=== PATIENT | female | born 1975 | race Two or more races ===

== ENCOUNTER 2025-06-17 19:32 | Emergency (ER) | payer MEDICAID, SELFPAY ==
[2025-06-17 19:34] VITALS: BP 108/73; PULSE 86; RESP 19; TEMP 36.4; O2SAT 100; BMI 33.3
[2025-06-17 19:38] VITALS: PULSE 80; O2SAT 98
--- NOTE | 2025-06-17 19:39 | EDNOTE_ITS ---
ED Syncope RME/HPI General Chief Complaint: Syncope / Near Syncope Stated Complaint: SYNCOPE/fall Time Seen by Provider: 06/17/25 20:00 Arrival date/time: 06/17/25 19:32 RME / HPI RME / HPI narrative: Dr. Milligan?[facility] Main ED Evaluation: 49yo female presenting for a brief syncopal episode characterized by lightheadedness/dizziness while in a seated position after having taken [place] earlier in the afternoon and Gabapentin shortly prior to syncope. Patient notes that she sustained brief LOC and sustained blunt trauma to the upper lip upon falling forward. Patient notes having chronic neck and back pain and chronic paresthesias of the BLE. Family members witnessed the fall, denied any seizure activity, but reports the patient did have urinary incontinence. PSH include cholecystectomy, lumbar stabilization procedure. Related Data Home Medications ?Medication ?Instructions ?Recorded ?Confirmed labetalol 200 mg tablet (Trandate) 200 mg PO BID #0 ta bs 04/10/15 02/19/19 Previous Rx's ?Medication ?Instructions ?Recorded docusate sodium 100 mg capsule 100 mg PO BID #50 caps 02/21/19 hydrocodone 5 mg-acetaminophen 325 1 tab PO Q6HR PRN M ODERATE PAIN 02/21/19 mg tablet 4-6 #25 tabs acetaminophen 300 mg-codeine 15 mg 1 tab PO Q8H PRN pa in #20 tabs 06/17/25 tablet bacitracin 500 unit/gram topical 1 applic topical TID #14 grams 06/17/25 ointment Allergies Allergy/AdvReac Type Severity Reaction Status Date / Time No Known Allergies Allergy Verified 02/20/19 13:59 Review of Systems Review of Systems Systems Reviewed: All systems reviewed, normal except as documented Past Medical History Past Medical History NEUROLOGIC: Negative Neurological Disorders or Seizures CARDIAC: Positive Cardiac Disorders and Hypertension; Negative Congestive Heart Failure RESPIRATORY: Negative Chronic Obstructive Pulmonary Disease (COPD) or Asthma GASTROINTESTINAL: Negative Gastrointestinal Disorders GENITOURINARY: Negative Genitourinary Disorders or Renal Disease MUSCULOSKELETAL: Negative Musculoskeletal Disorders ENDOCRINE: Negative Endocrine Disorders, Diabetes Mellitus Type 1 or Diabetes Mellitus Type 2 HEMATOLOGIC: Negative Blood Disorders or Sickle Cell Disease OTHER HISTORY: Negative Autoimmune Disease, Falls, Blood Transfusions, Blood Transfusion Reaction or Anesthesia Reactions Family History FAMILY HISTORY: Negative Family Cardiac Disorders Surgical History SURGICAL: Positive Section Social History SMOKING STATUS: Never smoker SUBSTANCE USE: does not use ED Exam Narrative Physical exam: GENERAL APPEARANCE: alert and oriented x 4, well-developed, well-nourished, appears to be upset emotionally, nontoxic, no acute distress VITALS: All vitals were reviewed and the pulse ox is 100% on room air, which is normal according to my interpretation. HEENT: Normocephalic, outer aspect of the upper lip, linear 2.5 cm full thick lac to the under surface, no malocclusion or dental injury; pupils equal, round, reactive to light; EOMI; mucous membranes pink, moist; oropharynx clear NECK: Supple, midline posterior tenderness throughout the cervical spine LUNGS: CTABL; no wheezes, no rales, no rhonchi HEART: Regular rate, regular rhythm; normal S1, S2; no murmurs ABDOMEN: non distended; normal BS; soft, no tenderness, no guarding, negative pelvic rock BACK: no CVA tenderness EXTREMITIES: mild tenderness and erythema to the inferior portion of the left patella with limited ROM at the knee, no ligamentous instability, distal function is intact, patient has difficulty extending the left knee; no edema NEUROLOGIC: awake; alert and oriented x4; GCS 15, has poor recollection of details of the event, cranial nerves II-XII grossly intact; no focal sensory or motor deficits, gait not observed PSYCHIATRIC: appropriate mood and affect SKIN: warm, dry, normal color; no rashes Course Quality Measures none Orders Category Date Time Status Motion Study Technician STAT Care 06/17/25 20:00 Active EKG (ED ONLY) *Do not use* NOW Care 06/17/25 20:00 Completed Orthostatic Vitals STAT Care 06/17/25 20:[address] cervical spine wo con Stat Exams 06/17/25 20:[address] head/brain wo con Stat Exams 06/17/25 20:04 Completed EKG (ED Only) Stat Exams 06/17/25 20:00 Draft XR knee limited LT 2V Stat Exams 06/17/25 20:05 Completed Urinalysis, C/S if Indicated Stat Lab 06/17/25 20:37 Completed Lidocaine 1% Vial 20 ml [Xylocaine 1% 20 ML] Med 06/17/25 22:06 Discontinued 10 ml INFL X1 ONE TET,DIP/PERT AC (Adult)-Tdap [Boostrix Adult (Tdap) Med 06/17/25 20:00 Discontinued Vacc] 0.5 ml IMI .ONCE ONE Vital Signs Vital signs: Vital Signs Temperature 97.6 F 06/17/25 19:34 Pulse Rate 86 06/17/25 19:34 Respiratory Rate 19 06/17/25 19:34 Blood Pressure 108/73 06/17/25 19:34 Pulse Oximetry (%) 100 06/17/25 19:34 Oxygen Delivery Method Room Air 06/17/25 19:34 PROCEDURES: Laceration Laceration 1: Site: lip (intra-oral, central upper lip) Size (cm): 2.5 Description: linear Depth: simple, single layer Local Anesthetic: lidocaine 1% Amount of anesthesia used (mL): 10 Pre-repair: irrigated extensively Skin layer closed with: vicryl Suture size (cm): 4-0 Number of sutures: 6 Technique: simple, interrupted Syncope MDM Narrative MDM Narrative:: Scribe Attestation: 06/17/25 - Leena, Erica Lewis am scribing for and in the presence of Dr. Milligan. 49yo female presenting for a brief syncopal episode characterized by lightheadedness/dizziness while in a seated position after having taken [place] earlier in the afternoon and Gabapentin shortly prior to syncope. Patient notes that she sustained brief LOC and sustained blunt trauma to the upper lip upon falling forward. Please see PE findings. Patient refused lab draw and thereby, no lab markers obtained. Routine left knee x-rays were obtained and was unremarkable for acute fracture. CT head and cervical spine were both unremarkable. Patient remained neurologically intact and hemodynamically stable throughout ED course. Will obtain orthostats at this time. Suspect brief syncopal episode likely medication-related and acknowledged poor PO intake. Will recommend increasing fluid hydration and staggering narcotic analgesics and gabapentin by 12 hours. Topical bacitracin will be applied for the oral laceration and precaution instructions issued. Patient data External records reviewed:: [facility] previous records (Per chart review, patient was admitted here on 02/19/19 for acute cholecystitis.) and EMS form Clinical information provided by:: patient and EMS Social determinants that could affect healthcare access:: none Patient has the following chronic illnesses:: HTN How is presenting disease/condition affected by chronic disease/condition?: uneffected by Evaluation data The following diagnostics were reviewed and interpreted by me:: lab results, radiology exam(s) and EKG tracing(s) Lab and/or radiology exams considered but not ordered:: none Interpretation Summary: EKG done at 2057, sinus rhythm, rate of 94, no acute pathological ST segment changes, no ectopy, normal intervals, normal axis, according to my interpretation. [facility] Report Signed Patient: JAKE HERNANDEZ. Record#: [id number] Birthdate: 1975 Age/Sex: 49 / F [facility] Dr: Ordering Physician: Matti Montes DO Date of Service: 06/17/25 Procedure(s): CT head/brain wo con Accession Number(s): [id number] cc: Matti Montes DO; Srinivas Cline MD~ Examination: CT brain head without contrast. 2-D sagittal coronal reconstructions Date and time of exam: June 17, 2025, 2041 hours INDICATIONS: Syncopal episode today, patient fell with injury to the head, head pain CTDI: vol (mGy): 49.1 DLP: (mGycm): 954 Technique: Multiple CT axial sections of the brain have been obtained, 5 mm slice thickness. Contrast has not been administered. 2-D sagittal, coronal reconstructions have been obtained Low dose protocols were performed. One or more of the following dose reduction techniques were used; automated exposure control, adjustment of the mA and/or KV according to patient size, use of iterative reconstruction technique. Findings: No significant ventricular enlargement. Intra-axial or extra-axial hemorrhage density is not seen. No mass effect or midline shift Basal cisterns are not remarkable. Fourth ventricle is midline. Cranial vault intact. Impression: Negative for acute hemorrhage, mass effect or midline shift Dictated By: Srinivas Cline MD Signed By: <Electronically signed by Srinivas Cline MD in OV> 06/17/252126 [facility] Report Signed Patient: JAKE HERNANDEZ Celsion. Record#: [id number] Birthdate: 1975 Age/Sex: 49 / F Location: [facility] Attending Dr: Ordering Physician: Matti Montes DO Date of Service: 06/17/25 Procedure(s): CT cervical spine wo con Accession Number(s): [id number] cc: Matti Montes DO; Srinivas Cline MD~ Examination: CT cervical spine without contrast 2-D sagittal reconstructions 2-D coronal reconstructions 3-D reconstructions. Exam date and time: June hours INDICATIONS: Syncopal episode today, patient fell with injury to the neck, neck pain CTDI:vol (mGy) 16.6 DLP: (mGycm) 320 Technique: Multiple 2 mm axial sections of the cervical spine have been obtained. The coronal and sagittal reconstructions have been obtained. 3-D reconstructions have been obtained. Low dose protocols were performed. One or more of the following dose reduction techniques were used; automated exposure control, adjustment of the mA and/or KV according to patient size, use of iterative reconstruction technique. Findings: Axial sections demonstrate intact base of the skull. C1 exhibit satisfactory relationship to the odontoid. No acute cervical vertebral body fracture seen. Alignment posterior spinous processes satisfactory. Impression: No acute cervical fracture. Dictated By: Srinivas Cline MD Signed By: <Electronically signed by Srinivas Cline MD in > 06/17/252126 [facility] Report Signed Patient: JAKE HERNANDEZ Record#: [id number] Birthdate: 1975 Age/Sex: 49 / F Location: [facility] Attending Dr: Ordering Physician: Matti Montes DO Date of Service: 06/17/25 Procedure(s): XR knee limited LT 1-2V Accession Number(s): [id number] cc: Matti Montes DO; Srinivas Cline MD~ EXAMINATION: Left knee 2 views TECHNIQUE: AP lateral left knee 2 views Date and time: June 17, 2025, 2129 hours INDICATIONS: Patient fell today with injury to the knee, knee pain. FINDINGS: No acute fracture No dislocation No foreign body IMPRESSION: No acute fracture Dictated By: Srinivas Cline MD Signed By: <Electronically signed by Srinivas Cline MD in OV> 06/17/25 2145 Medications / Prescriptions Medications or Prescriptions considered but not ordered:: none Medication administrations:: Medication Administration History Discontinued Medications Diphtheria/Tetanus/Acell Pertussis (Diphth,Pertuss(Acell),Tet Vac 0.5 Ml Syr- Adult) 0.5 ml IMi .ONCE ONE Stop: 06/17/25 20:01 Last Admin: 06/17/25 21:24 Dose: 0.5 ml Documented By: JOSE Lidocaine HCl (Lidocaine Hcl 1% 20 Ml Vial) 10 ml INFL X1 ONE Stop: 06/17/25 22:07 Last Admin: 06/17/25 23:01 Dose: 10 ml Documented By: BR see above Consultations Consultation(s) initiated? (list below): No Diagnosis Syncope Differential Diagnosis: vasovagal syncope, dehydration and other (fracture, dislocation, contusion, abrasion, ICH, medication side effect) Most likely diagnosis given after review of the tests above:: see clinical impression below Admission Indicated Admission indicated?: not indicated Admission Request Was there a request for admission?: No Disposition Plan Disposition Plan: Discharge Discharge Attestation Discharge Attestation: The patient and all family members were given an opportunity to ask questions and understood the discharge instructions. Discharge instructions specifically effects, indications for sooner follow up or return to the emergency department, and the expected course of current diagnosis. Patient condition: Stable Discharge Plan Plan Patient Disposition: HOME (Self Care) Discharge Disposition comment: stable Prescriptions/Referrals Prescriptions/Med Rec: New bacitracin 500 unit/gram ointment 1 applic topical TID Qty: 14 0RF acetaminophen-codeine 300-15 mg tablet 1 tab PO Q8H PRN (Reason: pain) Qty: 20 0RF No Action labetalol [Trandate] 200 MG tablet 200 mg PO BID Qty: 0 hydrocodone-acetaminophen 5-325 mg Tablet 1 tab PO Q6HR MDD 5 PRN (Reason: MODERATE PAIN 4-6) Qty: 25 0RF docusate sodium 100 mg Capsule 100 mg PO BID Qty: 50 0RF Referrals: Delonte Lyons PA-C [Primary Care Provider] - In 1 week Problem List Clinical Impression: Syncope and collapse, Medication reaction, Contusion of multiple sites, Laceration of lip Impression comment: Syncope/medication reaction/contusion of multiple sites/oral laceration Patient/Caregiver Discharge Instructions Discharge Activity: activity as tolerated Diet Instructions: Soft diet Education Materials: Causes of Syncope, ED PEACE Wrap, ED Laceration, Lip or Mouth Additional Instructions: Head of bed elevation. Ice compresses x 24 hours. Topical bacitracin twice daily. Stagger both gabapentin and narcotic analgesics by at least 10 to 12 hours. Increase fluid hydration. Print Language: Danish Stand Alone Forms: [facility] Award Info., Patient Portal Info Letter
[2025-06-17 19:47] VITALS: BP 119/83; PULSE 86; RESP 20; O2SAT 100
--- NOTE | 2025-06-17 20:00 | EKG_ITS ---
[facility] Test Date: 2025-06-17 Pat Name: JAKE HERNANDEZ Department: Room: - Gender: Female [employer]ander: : 1975 Requested By: Matti Vigil Order Number: [id number] Reading MD: Matti Vigil Measurements Intervals [place] Rate: 94 P: 19 WA: 142 QRS: 22 QRSD: 86 T: 13 QT: 357 QTc: 447 Interpretive Statements SINUS RHYTHM No previous ECG available for comparison /store/S0/[id number]/ecg/[id number].pdf
--- NOTE | 2025-06-17 20:04 | XR_ITS ---
Examination: CT brain head without contrast. 2-D sagittal coronal reconstructions Date and time of exam: June 17, 2025, 2041 hours INDICATIONS: Syncopal episode today, patient fell with injury to the head, head pain CTDI: vol (mGy): 49.1 DLP: (mGycm): 954 Technique: Multiple CT axial sections of the brain have been obtained, 5 mm slice thickness. Contrast has not been administered. 2-D sagittal, coronal reconstructions have been obtained Low dose protocols were performed. One or more of the following dose reduction techniques were used; automated exposure control, adjustment of the mA and/or KV according to patient size, use of iterative reconstruction technique. Findings: No significant ventricular enlargement. Intra-axial or extra-axial hemorrhage density is not seen. No mass effect or midline shift Basal cisterns are not remarkable. Fourth ventricle is midline. Cranial vault intact. Impression: Negative for acute hemorrhage, mass effect or midline shift
--- NOTE | 2025-06-17 20:05 | XR_ITS ---
EXAMINATION: Left knee 2 views TECHNIQUE: AP lateral left knee 2 views Date and time: June 17, 2025, 2129 hours INDICATIONS: Patient fell today with injury to the knee, knee pain. FINDINGS: No acute fracture No dislocation No foreign body IMPRESSION: No acute fracture
--- NOTE | 2025-06-17 20:06 | XR_ITS ---
Examination: CT cervical spine without contrast 2-D sagittal reconstructions 2-D coronal reconstructions 3-D reconstructions. Exam date and time: June, 2041 hours INDICATIONS: Syncopal episode today, patient fell with injury to the neck, neck pain CTDI:vol (mGy) 16.6 DLP: (mGycm) 320 Technique: Multiple 2 mm axial sections of the cervical spine have been obtained. The coronal and sagittal reconstructions have been obtained. 3-D reconstructions have been obtained. Low dose protocols were performed. One or more of the following dose reduction techniques were used; automated exposure control, adjustment of the mA and/or KV according to patient size, use of iterative reconstruction technique. Findings: Axial sections demonstrate intact base of the skull. C1 exhibit satisfactory relationship to the odontoid. No acute cervical vertebral body fracture seen. Alignment posterior spinous processes satisfactory. Impression: No acute cervical fracture.
[2025-06-17 20:43] LABS: Collection Type, Urine Clean Catch
[2025-06-17 20:50] LABS: Amorphous Crystals,Urine Present (Absent); Bacteria,Urine Rare; Bilirubin,Urine Negative (Negative); Blood,Urine Negative (Negative); Clarity,Urine Turbid (Clear/Hazy); Color,Urine Yellow (Lt Yel-Yel); Culture Indicated,Urine Not Indicated; Glucose, Urine Negative (Negative); Hyaline Casts,Urine 1 /hpf (0-1); Ketones,Urine Negative (Negative); Leukocyte Esterase,Urine Negative (Negative); Nitrite,Urine Negative (Negative); PH,Urine 7.0 (5.0-7.0); Protein,Urine 1+ (Neg - Trace); RBC,Urine 3 /hpf (0-3); Specific Gravity,Urine 1.023 (1.001-1.035); Squamous Epithelial Cell,Urine 2 /hpf (0-5); Urobilinogen,Urine 3.0 mg/dL (0.0-1.0); WBC,Urine 3 /hpf (0-5)
[2025-06-17 21:05] VITALS: BP 131/83; PULSE 88; RESP 19; TEMP 36.7; O2SAT 99
[2025-06-17] MEDS: DIPHTH,PERTUSS(ACELL),TET VAC 0.5 ML SYR- ADULT IMi (21:24)
[2025-06-17] MEDS: LIDOCAINE HCL 1% 20 ML VIAL 10 ML INFL (23:01)
[2025-06-17 23:45] VITALS: BP 140/82; PULSE 93; RESP 16; O2SAT 100
== END 2025-06-18 00:21 | disposition home or self-care (01) ==
PROVIDERS: Emergency Provider Emergency Medicine; PCP Physician Assistant
DX: R55 Syncope and collapse (principal); T39.1X5A Adverse effect of 4-Aminophenol derivatives, initial encounter; T42.6X5A Adverse effect of other antiepileptic and sedative-hypnotic drugs, initial encounter; S01.511A Laceration without foreign body of lip, initial encounter; S19.9XXA Unspecified injury of neck, initial encounter; S09.90XA Unspecified injury of head, initial encounter; S89.92XA Unspecified injury of left lower leg, initial encounter; I10 Essential (primary) hypertension; W19.XXXA Unspecified fall, initial encounter; Z23 Encounter for immunization
CPT/HCPCS: 12013; 70450; 72125; 73560; 81001; 90471; 90715; 93005; 99284; J3490